=== PATIENT | female | born 1985 | race Asian ===

== ENCOUNTER 2018-03-05 00:15 | Inpatient (IN) | payer BC, MEDICAID ==
[~2018-03-05] VITALS: Ht 160 cm; Wt 93.0 kg
[2018-03-05] MEDS: LACTATED RINGERS 1,000 ML IV SCH ×2 (01:00→16:46)
[2018-03-05 01:08] LABS: BASOPHILS # (AUTO) 0.05 x10^3/uL (0-0.1); BASOPHILS % (AUTO) 1 % (0-1); EOSINOPHILS % (AUTO) 2 % (1-7); LYMPHOCYTES % (AUTO) 18 % (22-44); MD NO; MEAN CORPUSCULAR HEMOGLOBIN 30.3 pg (27.0-34.8); MEAN CORPUSCULAR HGB CONC 33.5 g/dL (32.4-35.8); MEAN CORPUSCULAR VOLUME 90.5 fL (80-100); MEAN PLATELET VOLUME 7.8 fL (7.4-10.4); MONOCYTES # (AUTO) 0.93 x10^3/uL (0.2-0.8); MONOCYTES % (AUTO) 9 % (2-9); NEUTROPHILS # (AUTO) 7.06 x10^3/uL (1.8-6.8); NEUTROPHILS % (AUTO) 70 % (42-75); PLATELET COUNT 359 x10^3/uL (130-400); RED BLOOD COUNT 3.79 x10^6/uL (3.82-5.3); RED CELL DISTRIBUTION WIDTH 14.8 % (9.6-15.2)
[2018-03-05] MEDS ORDERED: FENTANYL/BUPIV./NS/PF 250 ML EPIDCONT SCH ×2 (01:25→01:35)
[2018-03-05] MEDS ORDERED: OXYTOCIN 30U/ 0.9% NaCL 500ML 500 ML IV ONE (01:29)
[2018-03-05] MEDS ORDERED: D5%-LACTATED RINGERS 1,000 ML IV SCH (01:29)
[2018-03-05] MEDS ORDERED: FENTANYL PF 100 MCG/2ML IV PRN (01:30)
[2018-03-05] MEDS ORDERED: CALCIUM CARBONATE 500 MG TAB.CHEW PO PRN (01:30)
[2018-03-05] MEDS ORDERED: ONDANSETRON 2MG/ML, 2ML IVPush PRN (01:30)
[2018-03-05] MEDS ORDERED: TERBUTALINE 1 MG/ML, 1ML IVPush PRN (01:30)
[2018-03-05] MEDS ORDERED: SODIUM CITRATE/CITRIC ACID 30 ML UDC PO PRN (01:30)
[2018-03-05] MEDS ORDERED: LACTATED RINGERS 1,000 ML IV SCH (01:35)
[2018-03-05 01:43] LABS: AMPHETAMINE SCREEN, URINE Positive (Negative); BARBITURATE SCREEN, URINE Negative (Negative); BENZODIAZEPINE SCREEN, URINE Negative (Negative); CANNABINOID SCREEN, URINE Negative (Negative); COCAINE SCREEN, URINE Negative (Negative); METHADONE SCREEN, URINE Negative (Negative); OPIATE SCREEN, URINE Negative (Negative)
[2018-03-05 01:51] LABS: ALANINE AMINOTRANSFERASE 21 U/L (12-78); ALBUMIN 2.3 g/dL (3.4-5.0); ANION GAP 9 mmol/L (5-15); CALCIUM 8.7 mg/dL (8.5-10.1); CHLORIDE 110 mmol/L (98-107); CREATININE 0.88 mg/dL (0.55-1.02)
[2018-03-05] MEDS ORDERED: BUPIVACAINE 0.25% ONE ×3 (01:51→23:09)
[2018-03-05 01:54] LABS: ALKALINE PHOSPHATASE 145 U/L (45-117); BILIRUBIN,TOTAL 0.2 mg/dL (0.2-1.0); TOTAL PROTEIN 5.8 g/dL (6.4-8.2)
[2018-03-05] MEDS ORDERED: NALOXONE 0.4 MG/ML, 1ML IVPush PRN (02:00)
[2018-03-05] MEDS ORDERED: EPHEDRINE 50 MG/ML, 1ML IVPush PRN (02:00)
[2018-03-05] MEDS ORDERED: LACTATED RINGERS 1,000 ML IVBOLUS PRN (02:00)
[2018-03-05] MEDS ORDERED: FENTANYL PF 500 MCG, BUPIVACAINE/PF 0.5%, 30ML 62.5 ML in SODIUM CHLORIDE 0.9% 177.5 ML EPIDCONT SCH (02:00)
[2018-03-05] MEDS ORDERED: OXYTOCIN 30U/ 0.9% NaCL 500ML 500 ML IV PRN (07:32)
[2018-03-05] MEDS: CEFAZOLIN PMX 2GM/50ML 50 ML IV SCH ×3 (07:40→22:33)
[2018-03-05 08:41] LABS: MICROSCOPIC INDICATED
[2018-03-05] MEDS ORDERED: PREN1TAB60 PO (11:43)
[2018-03-05] MEDS ORDERED: FAMO-79 PO (11:43)
[2018-03-05] MEDS ORDERED: RANI75TA12 PO (11:43)
[2018-03-05] MEDS ORDERED: ONDA4TAB10 PO (11:46)
[2018-03-05] MEDS ORDERED: ACETAMINOPHEN 325 MG TABLET ONE (13:47)
[2018-03-05] MEDS ORDERED: ACETAMINOPHEN 325 MG TABLET PO PRN (14:00)
[2018-03-05 14:05] LABS: BASOPHILS # (AUTO) 0.07 x10^3/uL (0-0.1); BASOPHILS % (AUTO) 1 % (0-1); EOSINOPHILS # (AUTO) 0.15 x10^3/uL (0-0.4); EOSINOPHILS % (AUTO) 1 % (1-7); LYMPHOCYTES # (AUTO) 1.54 x10^3/uL (1-3.4); LYMPHOCYTES % (AUTO) 14 % (22-44); MD NO; MEAN CORPUSCULAR HEMOGLOBIN 29.2 pg (27.0-34.8); MEAN CORPUSCULAR HGB CONC 32.6 g/dL (32.4-35.8); MEAN CORPUSCULAR VOLUME 89.6 fL (80-100); MEAN PLATELET VOLUME 7.8 fL (7.4-10.4); MONOCYTES # (AUTO) 0.91 x10^3/uL (0.2-0.8); MONOCYTES % (AUTO) 9 % (2-9); NEUTROPHILS # (AUTO) 8.04 x10^3/uL (1.8-6.8); NEUTROPHILS % (AUTO) 75 % (42-75); PLATELET COUNT 305 x10^3/uL (130-400); RED BLOOD COUNT 3.72 x10^6/uL (3.82-5.3)
[2018-03-05 14:14] LABS: ALANINE AMINOTRANSFERASE 19 U/L (12-78); ALBUMIN 1.9 g/dL (3.4-5.0); ANION GAP 9 mmol/L (5-15); BILIRUBIN, DIRECT 0.1 mg/dL (0.1-0.2); CALCIUM 7.8 mg/dL (8.5-10.1); CHLORIDE 111 mmol/L (98-107)
[2018-03-05 14:16] LABS: ALKALINE PHOSPHATASE 138 U/L (45-117); BILIRUBIN,TOTAL 0.2 mg/dL (0.2-1.0); CREATININE 0.61 mg/dL (0.55-1.02); TOTAL PROTEIN 5.1 g/dL (6.4-8.2)
[2018-03-05 14:20] LABS: CREATININE,URINE RANDOM 36.9 mg/dL
[2018-03-05] MEDS ORDERED: FENTANYL PF 100 MCG/2ML ONE ×2 (15:46→23:09)
[2018-03-05] MEDS ORDERED: ACETAMINOPHEN 500 MG TABLET ONE ×2 (20:04→20:12)
[2018-03-05] MEDS ORDERED: OXYTOCIN 30U/ 0.9% NaCL 500ML 500 ML ONE (20:14)
[2018-03-05] MEDS ORDERED: ACETAMINOPHEN 500 MG TABLET PO ONE (20:30)
[2018-03-06] MEDS ORDERED: METOCLOPRAMIDE 5 MG/ML, 2ML ONE (00:19)
[2018-03-06] MEDS ORDERED: SODIUM CITRATE/CITRIC ACID 30 ML UDC ONE (00:19)
[2018-03-06] MEDS ORDERED: LORazepam 2 MG/ML, 1ML ONE (00:43)
[2018-03-06] MEDS ORDERED: BUPIVACAINE 0.25% ONE ×2 (00:55→07:25)
[2018-03-06] MEDS ORDERED: FENTANYL PF 100 MCG/2ML ONE ×4 (00:55→09:00)
[2018-03-06] MEDS ORDERED: LORazepam 2 MG/ML, 1ML IVPush ONE (01:00)
[2018-03-06 06:50] LABS: BASOPHILS # (AUTO) 0.04 x10^3/uL (0-0.1); BASOPHILS % (AUTO) 0 % (0-1); EOSINOPHILS # (AUTO) 0.05 x10^3/uL (0-0.4); EOSINOPHILS % (AUTO) 0 % (1-7); LYMPHOCYTES # (AUTO) 1.37 x10^3/uL (1-3.4); LYMPHOCYTES % (AUTO) 8 % (22-44); MD NO; MEAN CORPUSCULAR HEMOGLOBIN 30.3 pg (27.0-34.8); MEAN CORPUSCULAR HGB CONC 33.6 g/dL (32.4-35.8); MEAN CORPUSCULAR VOLUME 90.1 fL (80-100); MEAN PLATELET VOLUME 7.6 fL (7.4-10.4); MONOCYTES # (AUTO) 1.33 x10^3/uL (0.2-0.8); MONOCYTES % (AUTO) 8 % (2-9); NEUTROPHILS # (AUTO) 13.62 x10^3/uL (1.8-6.8); NEUTROPHILS % (AUTO) 83 % (42-75); PLATELET COUNT 290 x10^3/uL (130-400); RED CELL DISTRIBUTION WIDTH 14.6 % (9.6-15.2)
[2018-03-06 06:55] LABS: CREATININE,URINE RANDOM 39.8 mg/dL
[2018-03-06] MEDS ORDERED: OXYTOCIN 10 UNITS/ML, 1ML ONE (07:00)
[2018-03-06 07:03] LABS: ALANINE AMINOTRANSFERASE 18 U/L (12-78); ANION GAP 6 mmol/L (5-15); CALCIUM 8.3 mg/dL (8.5-10.1); CHLORIDE 110 mmol/L (98-107); CREATININE 0.72 mg/dL (0.55-1.02)
[2018-03-06] MEDS ORDERED: LACTATED RINGERS 1,000 ML IV SCH (07:03)
[2018-03-06 07:05] LABS: ALKALINE PHOSPHATASE 149 U/L (45-117); BILIRUBIN,TOTAL 0.3 mg/dL (0.2-1.0); TOTAL PROTEIN 5.4 g/dL (6.4-8.2)
[2018-03-06] MEDS ORDERED: DOCUSATE 100 MG CAPSULE PO PRN (07:30)
[2018-03-06] MEDS ORDERED: MISOPROSTOL 200 MCG TABLET PR PRN (07:30)
[2018-03-06] MEDS ORDERED: SIMETHICONE 80 MG CHEW TAB PO PRN (07:30)
[2018-03-06] MEDS ORDERED: ONDANSETRON 2MG/ML, 2ML IV PRN (07:30)
[2018-03-06] MEDS ORDERED: CALCIUM CARBONATE 500 MG TAB.CHEW PO PRN (07:30)
[2018-03-06] MEDS ORDERED: IBUPROFEN 600 MG TABLET PO PRN (07:30)
[2018-03-06] MEDS ORDERED: morphine SULFATE 10 MG/ML, 1ML IVPush PRN ×2 (07:30)
[2018-03-06] MEDS ORDERED: MEASLES,MUMPS&RUBELLA VACC/PF 0.5 ML SQ-VACC PRN (07:30)
[2018-03-06] MEDS ORDERED: ACETAMINOPHEN 325 MG TABLET PO PRN ×2 (07:30)
[2018-03-06] MEDS ORDERED: DIPH,PERTUSS(ACELL),TET VAC/PF NC IM-VACC PRN (07:30)
[2018-03-06] MEDS ORDERED: OXYcodone/APAP 5/325MG TABLET PO PRN (07:30)
[2018-03-06] MEDS ORDERED: CEFAZOLIN 1,000 MG ONE ×2 (07:50)
[2018-03-06] MEDS ORDERED: morphine SULFATE/PF 0.5 MG/ML, 10ML ONE (07:56)
[2018-03-06] MEDS ORDERED: OXYTOCIN 30U/ 0.9% NaCL 500ML 500 ML IV SCH (08:33)
[2018-03-06] MEDS ORDERED: OXYTOCIN 30U/ 0.9% NaCL 500ML 500 ML ONE (08:36)
[2018-03-06] MEDS ORDERED: MAGNESIUM SULF. PMX 20GM/500ML 500 ML IV ONE ×2 (08:36→16:29)
[2018-03-06] MEDS ORDERED: METOCLOPRAMIDE 5 MG/ML, 2ML IV ONE (09:00)
[2018-03-06] MEDS: PRENATAL VIT/IRON/FA 1 EACH TABLET PO SCH (09:00)
[2018-03-06] MEDS ORDERED: MAGNESIUM SULFATE PMX 4GM/100M 100 ML IVPB ONE (09:00)
[2018-03-06] MEDS ORDERED: SODIUM CITRATE/CITRIC ACID 30 ML UDC PO ONE (09:00)
[2018-03-06] MEDS: FENTANYL PF 100 MCG/2ML IV PRN ×4 (09:04→09:47)
[2018-03-06] MEDS: MAGNESIUM SULF. PMX 20GM/500ML 500 ML IV SCH ×2 (09:15→16:32)
[2018-03-06] MEDS: OXYTOCIN 30U/ 0.9% NaCL 500ML 500 ML IV SCH (09:25)
[2018-03-06] MEDS: LACTATED RINGERS 1,000 ML IV SCH (09:25)
[2018-03-06] MEDS ORDERED: KETOROLAC 30 MG/1 ML ONE ×3 (10:14→21:52)
[2018-03-06] MEDS: KETOROLAC 30 MG/1 ML IV SCH ×3 (10:15→21:55)
[2018-03-06 14:08] LABS: BASOPHILS # (AUTO) 0.05 x10^3/uL (0-0.1); BASOPHILS % (AUTO) 0 % (0-1); EOSINOPHILS # (AUTO) 0.05 x10^3/uL (0-0.4); EOSINOPHILS % (AUTO) 0 % (1-7); LYMPHOCYTES # (AUTO) 1.38 x10^3/uL (1-3.4); LYMPHOCYTES % (AUTO) 8 % (22-44); MD NO; MEAN CORPUSCULAR HEMOGLOBIN 30.3 pg (27.0-34.8); MEAN CORPUSCULAR HGB CONC 33.7 g/dL (32.4-35.8); MEAN CORPUSCULAR VOLUME 90.1 fL (80-100); MEAN PLATELET VOLUME 7.8 fL (7.4-10.4); MONOCYTES # (AUTO) 1.18 x10^3/uL (0.2-0.8); MONOCYTES % (AUTO) 7 % (2-9); NEUTROPHILS # (AUTO) 14.28 x10^3/uL (1.8-6.8); NEUTROPHILS % (AUTO) 84 % (42-75); PLATELET COUNT 299 x10^3/uL (130-400); RED BLOOD COUNT 3.36 x10^6/uL (3.82-5.3); RED CELL DISTRIBUTION WIDTH 14.7 % (9.6-15.2)
[2018-03-06] MEDS: OXYcodone/APAP 5/325MG TABLET PO PRN ×3 (14:23→21:55)
[2018-03-06] MEDS ORDERED: OXYcodone/APAP 5/325MG TABLET ONE ×3 (14:23→21:53)
[2018-03-07] MEDS ORDERED: OXYcodone/APAP 5/325MG TABLET ONE (01:34)
[2018-03-07] MEDS ORDERED: MAGNESIUM SULF. PMX 20GM/500ML 0 ML IV ONE (01:34)
[2018-03-07] MEDS ORDERED: MAGNESIUM SULF. PMX 20GM/500ML 500 ML IV ONE (02:20)
[2018-03-07] MEDS: MAGNESIUM SULF. PMX 20GM/500ML 500 ML IV SCH (02:26)
[2018-03-07] MEDS ORDERED: KETOROLAC 30 MG/1 ML ONE (04:14)
[2018-03-07] MEDS: KETOROLAC 30 MG/1 ML IV SCH ×3 (04:17→16:08)
[2018-03-07] MEDS: LACTATED RINGERS 1,000 ML IV SCH ×3 (05:40→11:38)
[2018-03-07 08:31] VITALS: BP 133/81
[2018-03-07 09:58] VITALS: BP 133/84
[2018-03-07] MEDS: OXYTOCIN 30U/ 0.9% NaCL 500ML 500 ML IV SCH ×2 (11:37→11:38)
[2018-03-07] MEDS: PRENATAL VIT/IRON/FA 1 EACH TABLET PO SCH (11:38)
[2018-03-07 14:00] VITALS: BP 127/75
[2018-03-07] MEDS: OXYcodone/APAP 5/325MG TABLET PO PRN (14:06)
[2018-03-07 16:11] VITALS: BP 137/89
== END 2018-03-07 18:33 | disposition left against medical advice (07) | DRG 766 ==
LOC: LDOP 00:15 → LDIP 01:08 → 2NW 03-07 09:50
PROVIDERS: ADMIT Obstetrics & Gynecology; ATTEND Obstetrics & Gynecology
PROC: 10D00Z1 Extraction of Products of Conception, Low, Open Approach (ICD-10-PCS; principal; 2018-03-05)
DX: O13.4 Gestational [pregnancy-induced] hypertension without significant proteinuria, complicating childbirth (principal); O42.92 Full-term premature rupture of membranes, unspecified as to length of time between rupture and onset of labor; O62.1 Secondary uterine inertia; Z90.49 Acquired absence of other specified parts of digestive tract; Z90.89 Acquired absence of other organs; Z3A.37 37 weeks gestation of pregnancy; Z37.0 Single live birth
CPT/HCPCS: 36415; 87806; J7121; 80053; 80307; 81001; 82248; 82570; 82803; 83735; 84112; 84156; 84550; 85025; 86592; 86762; 86850; 86900; 87081; 87340; J0690; J1885; J2274; J3010; G0475; J2060; J2590; J2765; J3475; J7120